=== PATIENT | male | born 1980 | race Caucasian/White ===

== ENCOUNTER 2019-03-13 12:19 | Emergency (ER) | payer MEDICAID ==
[~2019-03-13] VITALS: Ht 180.3 cm; Wt 87.0 kg
[~2019-03-13 12:19] MED LIST: OXYC5CAP2 PO
[2019-03-13 12:39] VITALS: BP 132/85
[2019-03-13] MEDS ORDERED: KETOROLAC 30 MG/1 ML ONE (12:47)
[2019-03-13] MEDS ORDERED: ALBUTEROL/IPRATROPIUM 2.5MG/0.5MG, 3 ML ONE (12:51)
[2019-03-13] MEDS ORDERED: ALBUTEROL/IPRATROPIUM 2.5MG/0.5MG, 3 ML NPPB ONE (13:00)
[2019-03-13] MEDS ORDERED: KETOROLAC 30 MG/1 ML IM ONE (13:00)
[2019-03-13 13:18] LABS: RAPID INFLUENZA A Negative (Negative); RAPID INFLUENZA B Negative (Negative)
--- NOTE | 2019-03-13 13:55 | NUR ---
Patient/Caregiver given discharge instructions and they have confirmed that they understand the instructions. Patient ambulatory with steady gait.
== END 2019-03-13 13:56 | disposition home or self-care (01) ==
LOC: ED 13:50
DX: J06.9 Acute upper respiratory infection, unspecified (principal); R51 Headache; M79.10 Myalgia, unspecified site; F17.200 Nicotine dependence, unspecified, uncomplicated
CPT/HCPCS: 71046; 87400; 94640; 96372; 99284; J1885; J7620

== ENCOUNTER 2019-03-27 08:10 | Emergency (ER) | payer MEDICAID ==
[~2019-03-27] VITALS: Ht 180.3 cm; Wt 89.0 kg
[2019-03-27 08:17] VITALS: BP 166/94
== END 2019-03-27 09:01 | disposition home or self-care (01) ==
LOC: ED 08:54
DX: I10 Essential (primary) hypertension (principal); Z76.0 Encounter for issue of repeat prescription
CPT/HCPCS: 99283

== ENCOUNTER 2019-04-28 20:58 | Emergency (ER) | payer SELFPAY ==
[~2019-04-28] VITALS: Ht 180.3 cm; Wt 88.3 kg
[2019-04-28 21:01] VITALS: BP 160/98
== END 2019-04-28 21:14 | disposition home or self-care (01) ==
LOC: ED 21:10
DX: F41.9 Anxiety disorder, unspecified (principal); Z76.0 Encounter for issue of repeat prescription; Z79.899 Other long term (current) drug therapy
CPT/HCPCS: 99283

== ENCOUNTER 2019-08-19 10:37 | Emergency (ER) | payer MEDICAID ==
[~2019-08-19] VITALS: Ht 180.3 cm; Wt 89.5 kg
[2019-08-19 10:41] VITALS: BP 177/106
--- NOTE | 2019-08-19 10:45 | NUR ---
visual acuity in triage
[2019-08-19] MEDS ORDERED: PROPARACAINE OPHTH 0.5%, 15ML ONE (11:04)
[2019-08-19] MEDS ORDERED: FLUORESCEIN OPHTHALMIC 1 MG STRIP ONE (11:04)
--- NOTE | 2019-08-19 11:10 | NUR ---
THIS IS A 39 YEAR OLD MALE WHO C/O OF EYE REDNESS, DX WITH CONJUNCTIVITIS, AND WAS PRESCIBED ERYTHROMYCIN, S/SO HAVE NOT RESOLVED.
== END 2019-08-19 12:01 | disposition home or self-care (01) ==
LOC: ED 11:37
DX: H10.13 Acute atopic conjunctivitis, bilateral (principal); I10 Essential (primary) hypertension
CPT/HCPCS: 99283